=== PATIENT | female | born 1990 | race African-American/Black ===

== ENCOUNTER 2023-07-19 21:43 | Emergency (ER) | payer MEDICAID, OTHER ==
[~2023-07-19] VITALS: Ht 162.6 cm; Wt 92.0 kg
[2023-07-19 22:28] VITALS: O2SAT 98
[2023-07-19 22:57] LABS: CLARITY URINE CLOUDY (CLEAR); COLOR URINE YELLOW (YELLOW); GLUCOSE URINE NEGATIVE (NEGATIVE); KETONES URINE TRACE (NEGATIVE); LEUKOCYTE ESTERASE URINE 2+ (NEGATIVE); NITRITE URINE NEGATIVE (NEGATIVE); OCCULT BLOOD URINE NEGATIVE (NEGATIVE); PROTEIN URINE NEGATIVE (NEGATIVE); SPECIFIC GRAVITY URINE 1.023 (1.005-1.030)
[2023-07-19 23:11] LABS: BACTERIA URINE 2+; SQUAMOUS EPITHELIAL CELL URINE 1+ /lpf (RARE/1+)
[2023-07-19 23:12] LABS: RBC URINE 0-2 /hpf (0-2); WBC URINE 15-25 /hpf (0-2)
[2023-07-20] MEDS: KETOROLAC 30MG/ML VIAL IM ONE (01:45)
[2023-07-20] MEDS: METOCLOPRAMIDE HCL 10MG TABLET PO ONE (01:54)
[2023-07-20] MEDS ORDERED: CEPH500C2 MT (02:03)
[2023-07-20] MEDS ORDERED: IBUP-2029 MT (02:03)
[2023-07-20 02:49] VITALS: BP 128/77; PULSE 68; RESP 20; TEMP 98.2
== END 2023-07-20 02:32 | disposition home or self-care (01) ==
LOC: ER 21:43
DX: R51.9 Headache, unspecified (principal); N39.0 Urinary tract infection, site not specified; D64.9 Anemia, unspecified
CPT/HCPCS: 99283; 81003; 81025; 87086; 87186; 87077; 96372; J8597; J1885